=== PATIENT | female | born 1995 | race Caucasian/White ===

== ENCOUNTER 2018-04-26 10:45 | Emergency (ER) | payer OTHER ==
[2018-04-26 11:02] VITALS: TEMP 98.5; BMI 24.9
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
[2018-04-26 12:14] LABS: URINE APPEARANCE SLCLOUDY; URINE BILIRUBIN NEGATIVE (<2.0 mg/dL); URINE COLOR YELLOW; URINE GLUCOSE (UA) NEGATIVE (NEGATIVE); URINE KETONE NEGATIVE (NEGATIVE); URINE NITRITE NEGATIVE (NEGATIVE); URINE PROTEIN NEGATIVE (NEGATIVE); URINE UROBILINOGEN NEGATIVE mg/dL (0.2-1.0)
[2018-04-26 12:15] LABS: URINE LEUK ESTERASE 3+ (NEGATIVE)
[2018-04-26 12:21] LABS: BASO % 0.5 % (0-2.0); EOS % 0.7 % (0-4.5); HEMATOCRIT 36.8 % (32.4-45.2); HEMOGLOBIN 12.2 GM/dL (10.7-15.3); LYMPH % 41.4 % (8-40); MCH 26.9 pg (25.7-33.7); MCHC 33.3 g/dl (32.0-36.0); MEAN CELL VOLUME 80.8 fl (80-96); MEAN PLT VOLUME 8.9 fl (7.5-11.1); MONO % 6.2 % (3.8-10.2); NEUT % 51.2 % (42.8-82.8); PLATELET COUNT 227 K/MM3 (134-434); RBC 4.55 M/mm3 (3.60-5.2); RDW 14.7 % (11.6-15.6); WHITE BLOOD COUNT 5.9 K/mm3 (4.0-10.0)
[2018-04-26 12:22] LABS: COCAINE, UR NEGATIVE ng/ml (CUTOFF=300); URINE AMPHETAMINES NEGATIVE ng/ml (CUTOFF=500); URINE BARBITURATES NEGATIVE ng/ml (CUTOFF=200); URINE BENZODIAZEPINES NEGATIVE ng/ml (CUTOFF=200)
[2018-04-26 12:23] LABS: EPI CELLS RARE /HPF (FEW); METHADONE, UR NEGATIVE ng/ml (CUTOFF=300); PHENCYCLIDINE,URINE NEGATIVE ng/ml (CUTOFF=25); URINE HYALINE CAST 1 /lpf; URINE MUCUS MODERATE
[2018-04-26 12:32] LABS: OPIATES, URI POSITIVE ng/ml (CUTOFF=300)
[2018-04-26 12:34] LABS: ANION GAP 6 (8-16); BLOOD UREA NITROGEN 17 mg/dL (7-18); CALCIUM 8.9 mg/dL (8.5-10.1); CHLORIDE 108 mmol/L (98-107); CO2 29 mmol/L (21-32); GLUCOSE,RANDOM 84 mg/dL (74-106); SODIUM 143 mmol/L (136-145)
[2018-04-26 12:39] LABS: BILIRUBIN,TOTAL 0.2 mg/dL (0.2-1.0); CREATININE 0.5 mg/dL (0.55-1.02); SGOT/AST 9 U/L (15-37); SGPT/ALT 17 U/L (12-78)
[2018-04-26 12:41] LABS: ALK PHOS 78 U/L (45-117)
[2018-04-26 16:32] VITALS: BP 122/69; PULSE 65
--- NOTE | 2018-04-27 10:20 | EKG ---
Test Reason : Blood Pressure : / mmHG Vent. Rate : 066 BPM Atrial Rate : 066 BPM P-R Int : 148 ms QRS Dur : 080 ms QT Int : 384 ms P-R-T Axes : 063 059 042 degrees QTc Int : 402 ms NORMAL SINUS RHYTHM POSSIBLE LEFT ATRIAL ENLARGEMENT BORDERLINE ECG NO PREVIOUS ECGS AVAILABLE Confirmed by JEWELL WELSH, RAHEEM ([id number]) on 04/27/2018 10:20:53 AM Referred By: Confirmed By:RAHEEM CORCORAN MD
== END 2018-04-26 16:30 | disposition home or self-care (01) ==
LOC: JER 10:45
DX: G40.509 Epileptic seizures related to external causes, not intractable, without status epilepticus (principal)
CPT/HCPCS: 36415; 70450-TC; 80053; 80307; 81003; 81015; 84484; 84703; 85025; 87086; 93005; 93010; 99282-25

== ENCOUNTER 2019-09-10 22:38 | Emergency (ER) | payer OTHER ==
[2019-09-10 22:43] VITALS: BP 140/99; PULSE 101; TEMP 98.1; BMI 25.7
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
[2019-09-11] MEDS ORDERED: ACETAMINOPHEN 325 MG TABLET (FP) ONE (01:33)
[2019-09-11] MEDS ORDERED: DEXTROSE 5%-LACTATED RINGERS 500 ML IV ONE ×2 (01:45→02:45)
[2019-09-11] MEDS ORDERED: ACETAMINOPHEN 325 MG TABLET (FP) PO ONE (02:15)
[2019-09-11] MEDS ORDERED: TERBUTALINE SULFATE 1 MG/1 ML VIAL SQ ONE ×2 (04:05→04:11)
== END 2019-09-11 05:55 | disposition home or self-care (01) ==
LOC: JER 22:38
PROC: 3E023GC Introduction of Other Therapeutic Substance into Muscle, Percutaneous Approach (ICD-10-PCS; principal; 2019-09-10)
PROC: 3E0337Z Introduction of Electrolytic and Water Balance Substance into Peripheral Vein, Percutaneous Approach (ICD-10-PCS; 2019-09-10)
DX: O26.899 Other specified pregnancy related conditions, unspecified trimester (principal); Y08.89XA Assault by other specified means, initial encounter; Y93.89 Activity, other specified; Y92.9 Unspecified place or not applicable
CPT/HCPCS: 99283-25

== ENCOUNTER 2019-10-13 14:30 | Inpatient (IN) | payer OTHER ==
[2019-10-13] MEDS ORDERED: DINOPROSTONE 10 MG VAGINAL SUPPOSITORY VG ONE (16:20)
[2019-10-13] MEDS: DEXTROSE 5%-LACTATED RINGERS 1,000 ML IV SCH ×2 (16:30→23:15)
[2019-10-13 16:35] VITALS: BMI 25.7
--- NOTE | 2019-10-13 16:44 | HP ---
Past Medical History - Admission Chief Complaint: Elective induction History of Present Illness: 24 yo @ 40 weeks gestation, EDC 10/12/19, admitted for induction of labor. Upon admission she was 1cm dilated. History Source: Patient Limitations to Obtaining History: No Limitations - Past Medical History ...: 2 ...Para: 1 ...Term: 1 ...EDC by Kim: 10/12/19 - Past Surgical History Past Surgical History: Yes: None Hx Myomectomy: No Hx Transabdominal Cerclage: No - Smoking History Smoking history: Never smoked Have you smoked in the past 12 months: No Aproximately how many cigarettes per day: 1 - Alcohol/Substance Use Hx Alcohol Use: No History of Substance Use: reports: None - Social History Usual Living Arrangement: Yes: Alone History of Recent Travel: No Home Medications - Allergies Allergies/Adverse Reactions: Allergies Allergy/AdvReac Type Severity Reaction Status Date / Time No Known Allergies Allergy Verified 09/24/19 12:39 - Home Medications Home Medications: Ambulatory Orders Pnv No.95/Ferrous Fum/Folic AC [ Vitamin Tablet] 1 each PO DAILY Family Medical History Family History: Unremarkable Review of Systems - Review of Systems Constitutional: reports: No Symptoms Eyes: reports: No Symptoms HENT: reports: No Symptoms Neck: reports: No Symptoms Cardiovascular: reports: No Symptoms Respiratory: reports: No Symptoms Gastrointestinal: reports: No Symptoms Genitourinary: reports: No Symptoms Breasts: reports: No Symptoms Reported Musculoskeletal: reports: No Symptoms Integumentary: reports: No Symptoms Neurological: reports: No Symptoms Endocrine: reports: No Symptoms Psychiatric: reports: No Symptoms Pain Intensity: 0 Physical Exam - Maternity Vital Signs: Vital Signs Temperature 97.9 F 10/13/19 15:56 Pulse Rate 76 10/13/19 15:56 Respiratory Rate 20 10/13/19 15:56 Blood Pressure 123/76 10/13/19 15:56 O2 Sat by Pulse Oximetry (%) Constitutional: Yes: Calm Eyes: Yes: Conjunctiva Clear HENT: Yes: Atraumatic Neck: Yes: Supple Cardiovascular: Yes: Regular Rate and Rhythm Lungs: Clear to auscultation Breast(s): Yes: WNL - Abdominal Exam/OB Number of Fetuses: Single Presentation: Vertex Contractions: Yes Regularity: Irregular Intensity: Mild - Vaginal Exam/OB Dilatation (cm): 1 Effacement (%): 60 Amniotic Membrane Status: Intact Presentation: Vertex/Position Station: -3 - Physical Exam Musculoskeletal: Yes: WNL Extremities: Yes: WNL ...Motor Strength: WNL Psychiatric: Yes: Alert, Oriented Problem List - Problems (1) 40 weeks gestation of Problems reviewed: Yes Code(s): Z3A.40 - 40 WEEKS GESTATION OF Assessment/Plan 40 weeks gestation Admit for cervidil induction
[2019-10-13 17:45] LABS: BASO % 0.3 % (0-2.0); EOS % 0.1 % (0-4.5); HEMATOCRIT 31.6 % (32.4-45.2); HEMOGLOBIN 10.1 GM/dL (10.7-15.3); MCH 24.7 pg (25.7-33.7); MEAN PLT VOLUME 9.9 fl (7.5-11.1); NEUT % 73.6 % (42.8-82.8); PLATELET COUNT 185 K/MM3 (134-434); RBC 4.11 M/mm3 (3.60-5.2); RDW 16.1 % (11.6-15.6)
[2019-10-13 17:57] LABS: PROTHROMBIN TIME (PATIENT) 11.8 SEC (9.7-13.0)
[2019-10-13 18:07] LABS: BLOOD UREA NITROGEN 7.5 mg/dL (7-18); CALCIUM 8.9 mg/dL (8.5-10.1); CREATININE 0.4 mg/dL (0.55-1.3)
[2019-10-14] MEDS ORDERED: OXYTOCIN 30 UNITS in 0.9% NS 30 UNIT/500 ML INFUS.BAG IVPB SCH (08:30)
[2019-10-14] MEDS ORDERED: OXYTOCIN 20 UNITS in 0.9% NS 20 UNIT/1,000 ML INFUS.BAG IV ONE (09:13)
[2019-10-14] MEDS ORDERED: BENZOCAINE 20% 57 GM BOTTLE TP PRN (09:49)
[2019-10-14] MEDS ORDERED: METHYLERGONOVINE MALEATE 0.2 MG/1 ML AMP IM PRN (09:49)
[2019-10-14] MEDS ORDERED: BENZOCAINE 28 GM HEMORRHOIDAL OINTMENT TP PRN (09:49)
[2019-10-14] MEDS ORDERED: WITCH HAZEL 50% (TUCKS) 40 PAD/JAR PAD TP PRN (09:49)
[2019-10-14] MEDS ORDERED: BISACODYL 10 MG SUPP.RECT RC PRN (09:49)
--- NOTE | 2019-10-14 09:51 | PN ---
Delivery - Delivery Vaginal Delivery: Spontaneous Episiotomy/Laceration: 1st degree EBL (cc): 250 Delivery, Single - [place] Feeding Plan Initial Plan: Elected not to breastfeed exclusively throughout hospitalization Remarks - Remarks Remarks: Normal spontaneous vaginal delivery of a live boy over first degree laceration. Nose / Oropharynx suctioned @ perineum. Nuchal cord x1 clamped and cut. Baby handed to nurse. Placenta expelled spontaneously intact. Laceration repaired with 2.0 Biosyn.
[2019-10-14] MEDS ORDERED: OXYTOCIN 20 UNITS in 0.9% NS 20 UNIT/1,000 ML INFUS.BAG IV SCH (10:00)
[2019-10-14] MEDS: FERROUS SO4 325 MG TABLET (FP) PO SCH ×2 (11:40→21:50)
[2019-10-14] MEDS: PRENATAL VITAMINS W/ FOLIC ACID TABLET (FP) PO SCH (11:40)
[2019-10-14] MEDS ORDERED: IBUPROFEN 600 MG TABLET (FP) PO ONE (11:42)
[2019-10-14] MEDS: IBUPROFEN 600 MG TABLET (FP) PO PRN (11:44)
[2019-10-14] MEDS: SENNOSIDES/DOCUSATE COMBO (SENNA PLUS) TABLET (UD) PO PRN (20:16)
--- NOTE | 2019-10-15 08:36 | PN ---
Post Progress Note - Subjective Subjective: 24 yo Para 2 status post vaginal delivery, seen and evaluated. Doing well. Post Day: 1 Type of Delivery: Vital Signs: Vital Signs Temperature 98.0 F 10/15/19 06:00 Pulse Rate 78 10/15/19 06:00 Respiratory Rate 18 10/15/19 06:00 Blood Pressure 115/60 10/15/19 06:00 O2 Sat by Pulse Oximetry (%) 99 10/14/19 10:45 Breast Exam: Yes: Soft Uterus: Yes: Fundus Firm Abdomen/GI: Yes: Abdomen soft, Tolerating PO Lochia: Yes: Rubra Lochia, amount: Small Extremities: Yes: Calves non-tender Perineum: Yes: Laceration (Healing) Activity: Ambulating - Labs Labs: CBC WBC 9.0 K/mm3 (4.0-10.0) 10/13/19 17:00 RBC 4.11 M/mm3 (3.60-5.2) 10/13/19 17:00 Hgb 10.1 GM/dL (10.7-15.3) L 10/13/19 17:00 Hct 31.6 % (32.4-45.2) L 10/13/19 17:00 MCV 77.0 fl (80-96) L 10/13/19 17:00 MCH 24.7 pg (25.7-33.7) L 10/13/19 17:00 MCHC 32.0 g/dl (32.0-36.0) 10/13/19 17:00 RDW 16.1 % (11.6-15.6) H 10/13/19 17:00 Plt Count 185 K/MM3 (134-434) 10/13/19 17:00 MPV 9.9 fl (7.5-11.1) D 10/13/19 17:00 Absolute Neuts (auto) 6.6 K/mm3 (1.5-8.0) 10/13/19 17:00 Neutrophils % 73.6 % (42.8-82.8) D 10/13/19 17:00 Lymphocytes % 22.0 % (8-40) D 10/13/19 17:00 Monocytes % 4.0 % (3.8-10.2) 10/13/19 17:00 Eosinophils % 0.1 % (0-4.5) D 10/13/19 17:00 Basophils % 0.3 % (0-2.0) 10/13/19 17:00 Nucleated RBC % 0 % (0-0) 10/13/19 17:00 Problem List - Problems (1) 40 weeks gestation of Problems reviewed: Yes Code(s): Z3A.40 - 40 WEEKS GESTATION OF (2) Status post normal vaginal delivery Problems reviewed: Yes Code(s): QMJ5103 - Assessment/Plan Status post normal vaginal delivery Stable Continue routine care
[2019-10-15 08:39] LABS: BASO % 0.2 % (0-2.0); EOS % 0.4 % (0-4.5); HEMATOCRIT 27.7 % (32.4-45.2); HEMOGLOBIN 8.9 GM/dL (10.7-15.3); LYMPH % 16.8 % (8-40); MCH 24.9 pg (25.7-33.7); MCHC 32.3 g/dl (32.0-36.0); MEAN CELL VOLUME 77.2 fl (80-96); MEAN PLT VOLUME 9.5 fl (7.5-11.1); MONO % 4.8 % (3.8-10.2); NEUT % 77.8 % (42.8-82.8); PLATELET COUNT 177 K/MM3 (134-434); RBC 3.59 M/mm3 (3.60-5.2); RDW 15.7 % (11.6-15.6); WHITE BLOOD COUNT 12.9 K/mm3 (4.0-10.0)
[2019-10-15] MEDS ORDERED: DIPHTH,PERTUSS(ACELL),TET 0.5 ML DISP.SYRIN IM ONE (10:00)
[2019-10-15] MEDS: FERROUS SO4 325 MG TABLET (FP) PO SCH ×2 (10:56→21:57)
[2019-10-15] MEDS: PRENATAL VITAMINS W/ FOLIC ACID TABLET (FP) PO SCH (10:56)
[2019-10-15] MEDS: SENNOSIDES/DOCUSATE COMBO (SENNA PLUS) TABLET (UD) PO PRN (21:57)
[2019-10-15] MEDS: ACETAMINOPHEN 325 MG TABLET (FP) PO PRN (22:01)
[2019-10-15] MEDS: IBUPROFEN 600 MG TABLET (FP) PO PRN (22:01)
[2019-10-16] MEDS: FERROUS SO4 325 MG TABLET (FP) PO SCH (10:17)
[2019-10-16] MEDS: PRENATAL VITAMINS W/ FOLIC ACID TABLET (FP) PO SCH (10:17)
[2019-10-16 10:26] VITALS: BP 127/65; PULSE 92; TEMP 98.1
[2019-10-16] MEDS: ACETAMINOPHEN 325 MG TABLET (FP) PO PRN (12:45)
[2019-10-16] MEDS: IBUPROFEN 600 MG TABLET (FP) PO PRN (12:45)
--- NOTE | 2019-10-16 13:35 | PN ---
Post Progress Note - Subjective Subjective: feels well. Type of Delivery: Vital Signs: Vital Signs Temperature 98.1 F 10/16/19 10:00 Pulse Rate 92 H 10/16/19 10:00 Respiratory Rate 18 10/16/19 10:00 Blood Pressure 127/65 10/16/19 10:00 O2 Sat by Pulse Oximetry (%) 99 10/14/19 10:45 Breast Exam: Yes: Soft Uterus: Yes: Fundus Firm, Fundus below umbilicus Abdomen/GI: Yes: Abdomen soft Lochia: Yes: Rubra Lochia, amount: Small Extremities: Yes: Calves non-tender Perineum: Yes: Intact - Labs Labs: CBC WBC 12.9 K/mm3 (4.0-10.0) H 10/15/19 08:20 RBC 3.59 M/mm3 (3.60-5.2) L 10/15/19 08:20 Hgb 8.9 GM/dL (10.7-15.3) L 10/15/19 08:20 Hct 27.7 % (32.4-45.2) L 10/15/19 08:20 MCV 77.2 fl (80-96) L 10/15/19 08:20 MCH 24.9 pg (25.7-33.7) L 10/15/19 08:20 MCHC 32.3 g/dl (32.0-36.0) 10/15/19 08:20 RDW 15.7 % (11.6-15.6) H 10/15/19 08:20 Plt Count 177 K/MM3 (134-434) 10/15/19 08:20 MPV 9.5 fl (7.5-11.1) 10/15/19 08:20 Absolute Neuts (auto) 10.0 K/mm3 (1.5-8.0) H 10/15/19 08:20 Neutrophils % 77.8 % (42.8-82.8) 10/15/19 08:20 Lymphocytes % 16.8 % (8-40) D 10/15/19 08:20 Monocytes % 4.8 % (3.8-10.2) 10/15/19 08:20 Eosinophils % 0.4 % (0-4.5) D 10/15/19 08:20 Basophils % 0.2 % (0-2.0) 10/15/19 08:20 Nucleated RBC % 0 % (0-0) 10/15/19 08:20 Problem List - Problems (1) 40 weeks gestation of Code(s): Z3A.40 - 40 WEEKS GESTATION OF (2) Status post normal vaginal delivery Code(s): [id number] - Assessment/Plan Doing well. Happy. PE done, WNL. Ready to go home. Instructions given. Discharge.
--- NOTE | 2019-10-21 07:13 | DS ---
Physical Exam-[employer]NER Vital Signs: Vital Signs Temperature 98.1 F 10/16/19 10:00 Pulse Rate 92 H 10/16/19 10:00 Respiratory Rate 18 10/16/19 10:00 Blood Pressure 127/65 10/16/19 10:00 O2 Sat by Pulse Oximetry (%) 99 10/14/19 10:45 Constitutional: Yes: Well Nourished Eyes: Yes: Conjunctiva Clear HENT: Yes: Atraumatic Neck: Yes: Supple Cardiovascular: Yes: Regular Rate and Rhythm Respiratory: Yes: Regular Gastrointestinal: Yes: Normal Bowel Sounds External Genitalia: Yes: Normal Vaginal Exam: Yes: Normal Cervix: Yes: Normal Uterus: Yes: Firm ....Post : Yes: Uterus firm Breast(s): Yes: WNL Musculoskeletal: Yes: WNL Extremities: Yes: WNL Neurological: Yes: Alert, Oriented ...Motor Strength: WNL Psychiatric: Yes: Alert, Oriented Labs: CBC, BMP 10/15/19 08:20 10/13/19 15:52 Delivery - Delivery Vaginal Delivery: Spontaneous Type of Anesthesia: None Episiotomy/Laceration: 1st degree EBL (cc): 250 Delivery, Single - Stages of Labor Date 1st Stage Initiatied: 10/14/19 Time 1st Stage Initiated: 01:00 Date 2nd Stage Initiated: 10/14/19 Time 2nd Stage Initiated: 09:20 Date of Delivery: 10/14/19 Time of Delivery: 09:35 Time Placenta Delivered: 09:40 - Condition of Header Up/Gas Attendant Present: No Infant Gender: Male Weight: 8 lb 1 oz Total Hours ROM (Hrs/Mins): 220 - 1 Minute Total Score: 9 5 Minutes Total Score: 9 - [place] Feeding Plan Initial Plan: Elected not to breastfeed exclusively throughout hospitalization Discharge Summary Problems reviewed: Yes Reason For Visit: INDUCTION OF LABOR Procedures: Principal: Normal spontaneous vaginal delivery Hospital Course: Routine care Health Concerns: None Plan of Treatment: Ambulation Analgesia as needed F/U with MD in 6 weeks Goals: Instructed patient to call for appointment in 6 weeks. Condition: Stable - Instructions Referrals: Naomi López MD [Staff Physician] - Disposition: HOME - Home Medications Comprehensive Discharge Medication List: Ambulatory Orders Pnv No.95/Ferrous Fum/Folic AC [ Vitamin Tablet] 1 each PO DAILY
== END 2019-10-16 14:05 | disposition home or self-care (01) | DRG 560 ==
LOC: JLDR 14:30 → J3W 10-14 17:47
PROVIDERS: ADMIT Obstetrics & Gynecology; ATTEND Obstetrics & Gynecology
PROC: 10E0XZZ Delivery of Products of Conception, External Approach (ICD-10-PCS; principal; 2019-10-13)
PROC: 0KQM0ZZ Repair Perineum Muscle, Open Approach (ICD-10-PCS; 2019-10-13)
DX: O71.82 Other specified trauma to perineum and vulva (principal); Z3A.39 39 weeks gestation of pregnancy; Z37.0 Single live birth
CPT/HCPCS: 36415; 59409; 80048; 85025; 85610; 86593; 86850; 86900; 86901; 87389; 90715